=== PATIENT | female | born 1990 | race Two or more races ===

== ENCOUNTER 2019-07-17 08:34 | Inpatient (IN) | payer MEDICAID ==
[~2019-07-17] VITALS: Ht 154.9 cm; Wt 64.4 kg
[2019-07-17] MEDS ORDERED: DEXT 5%/LR + PITOCIN 20UNITS/L 1,000 ML IV SCH (09:29)
[2019-07-17] MEDS ORDERED: MISOPROSTOL 100MCG TABLET VG PRN (09:30)
[2019-07-17] MEDS ORDERED: METHYLERGONOVINE MALEATE 0.2 MG/ML IM PRN (09:30)
[2019-07-17] MEDS ORDERED: NALOXONE HCL 0.4 MG/ML 1ML VIAL IM PRN (09:30)
[2019-07-17] MEDS ORDERED: LIDOCAINE HCL 1% 20ML VIAL (Pyxis) INJ INFIL PRN (09:30)
[2019-07-17] MEDS: LACTATED RINGERS 1,000 ML IV SCH ×4 (10:15→20:49)
[2019-07-17 10:18] LABS: BASOPHILS % 0.3 % (0.0-2.0); CLARITY URINE CLEAR (CLEAR); COLOR URINE YELLOW (YELLOW); EOSINOPHILS % 0.3 % (0.0-5.0); HEMOGLOBIN. 13.1 g/dL (12.0-16.0); KETONES URINE NEGATIVE (NEGATIVE); LEUKOCYTE ESTERASE URINE 1+ (NEGATIVE); LYMPHOCYTES % 22.8 % (20.0-50.0); MEAN CORPUSCULAR HEMOGLOBIN 31.9 pg (28.0-32.0); MEAN CORPUSCULAR VOLUME 90.1 fL (81.0-99.0); MEAN PLATELET VOLUME 10.5 fl (7.4-10.4); MONOCYTES % 5.4 % (2.0-8.0); NEUTROPHILS % 71.2 % (40.0-76.0); NITRITE URINE NEGATIVE (NEGATIVE); OCCULT BLOOD URINE NEGATIVE (NEGATIVE); PLATELET 160 x1000/uL (130-400); PROTEIN URINE NEGATIVE (NEGATIVE); RED CELL DISTRIBUTION WIDTH 12.8 % (11.6-14.6); UROBILINOGEN URINE 0.2 E.U./dL (0.2-1.0)
[2019-07-17 10:28] LABS: INR 0.9; PARTIAL THROMBOPLASTIN TIME 26.1 sec (23.4-31.0); PROTHROMBIN TIME 9.2 sec (9.6-11.0)
[2019-07-17 12:16] LABS: HEPATITIS B SURFACE ANTIGEN NEGATIVE
[2019-07-17 12:56] LABS: *BARBITURATES SCREEN URINE NEGATIVE (NEGATIVE)
[2019-07-17 12:57] LABS: *AMPHETAMINES SCREEN URINE NEGATIVE (NEGATIVE); *COCAINE SCREEN URINE NEGATIVE (NEGATIVE); CANNABINOID URINE SCREEN NEGATIVE (NEGATIVE); METHADONE URINE SCREEN NEGATIVE (NEGATIVE); OPIATES URINE SCREEN NEGATIVE (NEGATIVE); PHENCYCLIDINE URINE SCREEN NEGATIVE (NEGATIVE)
[2019-07-17 12:58] LABS: *BENZODIAZEPINES SCREEN URINE NEGATIVE (NEGATIVE)
[2019-07-17] MEDS: BUTORPHANOL TARTRATE 2 MG/ML VIAL IV PRN ×2 (13:42→17:18)
[2019-07-17] MEDS: OXYTOCIN 20 UNITS in LACTATED RINGERS 1,000 ML IV SCH (13:49)
[2019-07-17] MEDS ORDERED: ONDANSETRON HCL 4MG/2ML INJ IV PRN ×2 (18:15→21:15)
[2019-07-17] MEDS ORDERED: ROPIVACAINE HCL/PF EPIDURAL 200 ML EPI SCH (18:15)
[2019-07-17] MEDS ORDERED: DIPHENHYDRAMINE 50MG/ML VIAL IV PRN (18:15)
[2019-07-18] MEDS ORDERED: BUPIVACAINE HCL/PF 0.25% (2.5MG/ML) 10ML ONE (01:56)
[2019-07-18] MEDS: LACTATED RINGERS 1,000 ML IV SCH (02:52)
[2019-07-18] MEDS: OXYTOCIN 20 UNITS in LACTATED RINGERS 1,000 ML IV SCH (06:09)
[2019-07-18] MEDS ORDERED: DEXT 5%/LR + PITOCIN 20UNITS/L 1,000 ML IV SCH (06:21)
[2019-07-18] MEDS ORDERED: GLYCERIN/WITCH HAZEL LEAF MEDICATED PAD TOP PRN (06:30)
[2019-07-18] MEDS ORDERED: LANOLIN OINT 7GM TUBE TOP PRN (06:30)
[2019-07-18] MEDS ORDERED: BENZOCAINE/LANOLIN/ALOE VERA SPRAY TOP PRN (06:30)
[2019-07-18] MEDS ORDERED: BISACODYL 10MG SUPP PR PRN (06:30)
[2019-07-18] MEDS ORDERED: HEMORRHOIDAL SUPP PR PRN (06:30)
[2019-07-18] MEDS ORDERED: ACETAMINOPHEN WITH CODEINE 300/30MG TABLET PO PRN (06:30)
[2019-07-18] MEDS: IBUPROFEN 400MG TABLET PO PRN ×2 (06:45→09:32)
[2019-07-18 08:20] VITALS: BP 116/75
[2019-07-18 08:50] VITALS: BP 102/70
[2019-07-18] MEDS: MAGNESIUM/ALUMINUM HYDROXIDE/SIMETHICONE 30ML UDC PO SCH ×4 (09:32→20:34)
[2019-07-18] MEDS: SIMETHICONE 80MG TABLET CHEW PO SCH ×4 (09:32→20:34)
[2019-07-18] MEDS: ACETAMINOPHEN WITH CODEINE 300/30MG TABLET PO PRN ×3 (11:52→20:35)
[2019-07-18 16:10] VITALS: BP 113/79
[2019-07-18] MEDS: PRENATAL VIT/FE FUMARATE/FA TABLET PO SCH (16:46)
[2019-07-18 20:10] VITALS: BP 114/65
[2019-07-18] MEDS: DOCUSATE SODIUM 100MG CAPSULE PO SCH (20:34)
[2019-07-19 04:18] VITALS: BP 108/55
[2019-07-19] MEDS: IBUPROFEN 400MG TABLET PO PRN ×2 (06:24→23:07)
[2019-07-19] MEDS: MAGNESIUM/ALUMINUM HYDROXIDE/SIMETHICONE 30ML UDC PO SCH ×4 (06:25→21:00)
[2019-07-19] MEDS: FERROUS SULFATE 325MG TABLET PO SCH ×3 (06:25→16:41)
[2019-07-19 07:02] LABS: BASOPHILS % 0.3 % (0.0-2.0); EOSINOPHILS % 0.3 % (0.0-5.0); HEMATOCRIT. 30.8 % (36.0-48.0); HEMOGLOBIN. 10.6 g/dL (12.0-16.0); LYMPHOCYTES % 13.8 % (20.0-50.0); MEAN CORPUSCULAR VOLUME 92.8 fL (81.0-99.0); MEAN PLATELET VOLUME 10.2 fl (7.4-10.4); MONOCYTES % 4.7 % (2.0-8.0); NEUTROPHILS % 80.9 % (40.0-76.0); PLATELET 153 x1000/uL (130-400); RED BLOOD CELL COUNT 3.32 mill/uL (4.2-5.4); RED CELL DISTRIBUTION WIDTH 13.2 % (11.6-14.6)
[2019-07-19] MEDS: SIMETHICONE 80MG TABLET CHEW PO SCH ×4 (08:00→21:00)
[2019-07-19 08:15] VITALS: BP 107/68
[2019-07-19] MEDS: PRENATAL VIT/FE FUMARATE/FA TABLET PO SCH (09:10)
[2019-07-19 16:20] VITALS: BP 113/70
[2019-07-19] MEDS: ACETAMINOPHEN WITH CODEINE 300/30MG TABLET PO PRN (16:37)
[2019-07-19 20:15] VITALS: BP 104/70
[2019-07-19] MEDS: DOCUSATE SODIUM 100MG CAPSULE PO SCH (21:00)
[2019-07-20] MEDS ORDERED: HEMORRHOIDAL SUPP PR PRN (00:15)
[2019-07-20 04:13] VITALS: BP 108/73
[2019-07-20] MEDS ORDERED: TETANUS, DIPHTHERIA, PERTUSSIS VAC/PF 0.5ML (>7YR OLD) IM ONE (06:00)
[2019-07-20 08:00] VITALS: BP 119/73
== END 2019-07-20 13:30 | disposition home or self-care (01) | DRG 560 ==
LOC: 8 EST LDRP 08:34 → OBSVTOIN 08:34 → 8EST 07-18 06:30
PROVIDERS: ADMIT Obstetrics & Gynecology; ATTEND Obstetrics & Gynecology
PROC: 10D07Z6 Extraction of Products of Conception, Vacuum, Via Natural or Artificial Opening (ICD-10-PCS; principal; 2019-07-18)
PROC: 3E0R3BZ Introduction of Anesthetic Agent into Spinal Canal, Percutaneous Approach (ICD-10-PCS; 2019-07-18)
PROC: 00HU33Z Insertion of Infusion Device into Spinal Canal, Percutaneous Approach (ICD-10-PCS; 2019-07-18)
PROC: 3E0P7VZ Introduction of Hormone into Female Reproductive, Via Natural or Artificial Opening (ICD-10-PCS; 2019-07-18)
PROC: 0UQGXZZ Repair Vagina, External Approach (ICD-10-PCS; 2019-07-18)
DX: O24.429 Gestational diabetes mellitus in childbirth, unspecified control (principal); O71.4 Obstetric high vaginal laceration alone; O69.3XX0 Labor and delivery complicated by short cord, not applicable or unspecified; O99.03 Anemia complicating the puerperium; Z3A.39 39 weeks gestation of pregnancy; Z37.0 Single live birth
CPT/HCPCS: 36415; 80305; 81003; 86592; 86703; 86762; 86850; 86900; 87340; 90715; G0378; J0595; J2405; J2590; J2795; J3490; J7120; A4315